=== PATIENT | male | born 1985 | race Two or more races ===

== ENCOUNTER 2024-10-05 20:02 | Inpatient (IN) | payer MEDICAID, OTHER ==
[~2024-10-05] VITALS: Ht 180.3 cm; Wt 118.8 kg
--- NOTE | 2024-10-05 20:30 | ED.PDOC ---
History of Present Illness HPI Comments A 39 year-old male, with a PMHX of DM, Lupus, Seizures, and Stroke, presents to the ED with a chief complaint of confusion as of today. Patient is accompanied by his younger brother, who states patient is not acting like his regular self, displaying an inability to remember what day/month it is or remember simple tasks like making food. Per brother, this behavior is irregular, patient is flustered and confused. Patient is A&OX4 but has his brother answer all questions. Patient has no further complaints at this time and otherwise denies further associated symptoms of LOC, migraine, dizziness, chest pain, N/V/D, fever, or chills. Chief Complaint: ALOC Time Seen by MD: 20:23 Reviewed Notes: Nurses Notes, Medications, Allergies Allergies: Coded Allergies: NO KNOWN ALLERGIES (Unverified , 10/05/24) Information Source: Patient, Relative (Brother ) Mode of Arrival: Ambulatory Severity: Moderate Duration: Since onset Associated signs and symptoms Confusion / Inability to Remember Past Medical History PAST MEDICAL HISTORY: DM, HTN, Seizures Past Medical History (Other): Lupus, Blood Clots, Stroke Surgical History: Denies all surgeries Family History Family History: Reviewed,noncontributory to illness, No family hx of Cancer, No family hx of DM, No family hx of Heart casa, No family hx of HTN, No family hx ofKidney casa, No family hx of Liver casa, No family hx of Lung casa, No family hx of Stroke Social History Smoker: Non-Smoker Alcohol: Denies ETOH Use Drugs: Denies Drug Use Lives In: Home Constitutional: reports: others (Confusion / Inability to Remember); denies: chills, diaphoresis, fatigue, fever, malaise, sweats, weakness EENTM: denies: blurred vision, double vision, ear bleeding, ear discharge, ear drainage, ear pain, ear ringing, eye pain, eye redness, hearing loss, mouth pain, mouth swelling, nasal discharge, nose bleeding, nose congestion, nose pain, photophobia, tearing, throat pain, throat swelling, voice changes, others Respiratory: denies: cough, hemoptysis, orthopnea, SOB at rest, shortness of breath, SOB with excertion, stridor, wheezing, others Cardiovascular: denies: chest pain, dizzy spells, diaphoresis, Dyspnea on exertion, edema, irregular heart beat, left arm pain, lightheadedness, palpitations, PND, syncope, others Gastrointestinal: denies: abdomen distended, abdominal pain, blood streaked bowels, constipated, diarrhea, dysphagia, difficulty swallowing, hematemesis, melena, nausea, poor appetite, poor fluid intake, rectal bleeding, rectal pain, vomiting, others Genitourinary: denies: burning, dysuria, flank pain, frequency, hematuria, incontinence, penile discharge, penile sore, pain, testicle pain, testicle swelling, urgency, others Neurological: denies: dizziness, fainting, headache, left sided numbness, left sided weakness, numbness, paresthesia, pre-existing deficit, right sided numbness, right sided weakness, seizure, speech problems, tingling, tremors, weakness, others Musculoskeletal: denies: back pain, gout, joint pain, joint swelling, muscle pain, muscle stiffness, neck pain, others Integumetry: denies: bruises, change in color, change in hair/nails, dryness, laceration, lesions, lumps, rash, wounds, others Allergic/Immunocompromised: denies: Difficulty Healing, Frequent Infections, Hives, Itching, others Hematologic/Lymphatic: denies: anemia, blood clots, easy bleeding, easy bruising, swollen glands, others Endocrine: denies: excessive hunger, excessive sweating, excessive thirst, excessive urination, flushing, intolerance to cold, intolerance to heat, unexplained weight gain, unexplained weight loss, others Psychiatric: denies: anxiety, bipolar disorder, depression, hopeless, panic disorder, schizophrenia, sleepless, suicidal, others All Other Systems: Reviewed and Negative Physical Exam General Appearance: Mild Distress, Normal HEENT: Normal ENT Inspection, Pharynx Normal, TMs Normal Neck: Full Range of Motion, Non-Tender, Normal, Normal Inspection Respiratory: Chest Non-Tender, Lungs Clear, No Accessory Muscle Use, No Respiratory Distress, Normal Breath Sounds Cardiovascular: No Edema, No JVD, No Murmur, No Gallop, Normal Peripheral Pulses, Regular Rate/Rhythm Breast Exam: Deferred Gastrointestinal: No Organomegaly, Non Tender, No Pulsatile Mass, Normal Bowel Sounds, Soft Genitalia: Deferred Pelvic: Deferred Rectal: Deferred Extremities: No calf tenderness, Normal capillary refill, Normal inspection, Normal range of motion, Non-tender, No pedal edema Musculoskeletal : Apperance: Normal Neurologic: Alert, research scholar II-XII nml as Tested, No Motor Deficits, Normal Affect, Normal Mood, No Sensory Deficits Cerebellar Function: Normal Reflexes: Normal Skin: Dry, Normal Color, Warm Lymphatic: No Adenopathy Was a procedure done? Was a procedure done?: No Differential Dx Considerations may include: Dementia, HTN, DM X-Ray, Labs, Meds, VS Vital Signs Date Time Temp Pulse Resp B/P (MAP) Pulse Ox O2 Delivery O2 Flow Rate FiO2 10/05/24 23:07 98.3 81 14 149/97 (114) 94 98.3 10/05/24 20:02 98.7 99 20 138/88 98 98.7 Lab Test 10/05/24 23:30 10/05/24 21:00 Range/Units Urine Color Light-yellow Yellow Urine Clarity Clear Clear Urine pH 5.0 5.0-9.0 Urine Specific [place] 1.020 1.001-1.035 Urine Protein Trace H Negative Urine Ketones Negative Negative Urine Blood Negative Negative /uL Urine Nitrite Negative Negative Urine Bilirubin Negative Negative Urine Urobilinogen Normal Negative mg/dL Urine Leukocyte Esterase Negative Negative /uL Urine RBC None seen 0 - 3 /hpf Urine Microscopic WBC < 1 0-3 /HPF Urine Squamous Epithelial Cells None seen <5 /hpf Urine Uric Acid Crystals Few None Seen /hpf Urine Bacteria None seen None Seen /hpf Urine Mucus Few None Seen Urine Glucose 4+ H Normal mg/dL Urine Opiates Screen Neg NEGATIVE Urine Fentanyl Screen Neg NEGATIVE Urine Barbiturates Screen Neg NEGATIVE Urine Phencyclidine Screen Neg NEGATIVE Urine Amphetamines Screen Neg NEGATIVE Urine Benzodiazepines Screen Neg NEGATIVE Urine Cocaine Screen Neg NEGATIVE Urine Cannabinoids Screen Pos NEGATIVE White Blood Count 9.8 4.4-10.8 10^3/uL Red Blood Count 5.80 4.5-5.90 10^6/uL Hemoglobin 16.8 13.5-17.5 g/dL Hematocrit 47.7 41.0-53.0 % Mean Corpuscular Volume 82.2 80.0-100.0 fL Mean Corpuscular Hemoglobin 29.0 28.0-32.0 pg Mean Corpuscular Hemoglobin Concent 35.2 32.0-36.0 g/dL Red Cell Distribution Width 14.6 H 11.8-14.3 % Platelet Count 89 L 140-450 10^3/uL Mean Platelet Volume 8.5 6.9-10.8 fL Neutrophils (%) (Auto) 80.1 H 37.0-80.0 % Lymphocytes (%) (Auto) 10.2 10.0-50.0 % Monocytes (%) (Auto) 6.2 0.0-12.0 % Eosinophils (%) (Auto) 2.8 0.0-7.0 % Basophils (%) (Auto) 0.7 0.0-2.0 % Neutrophils # (Auto) 7.9 1.6-8.6 10 ^3/uL Lymphocytes # (Auto) 1.0 0.4-5.4 10 ^3/uL Monocytes # (Auto) 0.6 0-1.3 10 ^3/uL Eosinophils # (Auto) 0.3 0-0.8 10 ^3/uL Basophils # (Auto) 0.1 0-0.2 10 ^3/uL Nucleated Red Blood Cells 0.2 % Platelet Estimate Decreased Sodium Level 140 136-145 mmol/L Potassium Level 4.1 3.5-5.1 mmol/L Chloride Level 105 98-107 mmol/L Carbon Dioxide Level 24 20-31 mmol/L Anion Gap 11 5-15 Blood Urea Nitrogen 20 9-23 mg/dL Creatinine 2.10 H 0.700-1.30 mg/dL Glomerular Filtration Rate Calc 40 >90 mL/min BUN/Creatinine Ratio 9.5 L 10.0-20.0 Serum Glucose 127 H 74-106 mg/dL Calcium Level 10.2 8.7-10.4 mg/dL Total Bilirubin 0.8 0.2-1.0 mg/dL Aspartate Amino Transferase (AST) 31 13-40 U/L Alanine Aminotransferase (ALT) 34 7-40 U/L Alkaline Phosphatase 149 H 46-116 U/L Ammonia 14 11-32 umol/L Total Protein 7.7 5.7-8.2 g/dL Albumin 4.7 3.2-4.8 g/dL Plasma/Serum Blood Alcohol 4.1 <10 mg/dL X-Ray, Labs, Meds, VS Comment Patient will be admitted for metabolic encephalopathy Recommend neuro consult in the morning Vital signs reviewed, patient is hemodynamically stable Past history reviewed Time of 1ST Reevaluation: 20:43 Reevaluation 1ST: Unchanged Patient Education/Counseling: Diagnosis, Treatment Family Education/Counseling: Diagnosis, Treatment SEPSIS Sepsis Screen Date sepsis recognized/suspect: Oct 05, 2024 Time Sepsis recognized/suspect: 2001 Procedure: No On Antibiotic Therapy: No Respiratory Rate >20: No Heart Rate >90: No Temp<36 C (96.8 F) or >38.3 C: No SBP <90 or MAP <65 mmHG: No New Acute Mental Status Change: No Is the patient on CPAP, BIPAP,: No Physician Orders Head Without Contrast (10/05/24 20:29) Vital Signs Date Time Temp Pulse Resp B/P (MAP) Pulse Ox O2 Delivery O2 Flow Rate FiO2 10/05/24 23:07 98.3 81 14 149/97 (114) 94 98.3 10/05/24 20:02 98.7 99 20 138/88 98 98.7 Laboratory Tests Test 10/05/24 21:00 White Blood Count 9.8 10^3/uL (4.4-10.8) Departure 1 Departure Time of Disposition: 00:15 Impression: Primary Impression: Altered mental status Qualified Codes: R41.0 - Disorientation, unspecified Additional Impression: Metabolic encephalopathy Disposition: ADMITTED INPATIENT Condition: Fair Discharged With: Self Critical Care Note Critical Care Time?: No Stability Stability form required: No Heart Score Heart Score: Heart Score Response (Comments) Value History N/A 0 EKG N/A 0 Age N/A 0 Risk Factors N/A 0 Troponin N/A 0 Total 0 I personally scribed for AKASH JOHNSON THIRD GRADE TEACHER ([email or web address]) on 10/05/24 at 20:30. Electronically submitted by Vidya Rolon ([employer]). I personally scribed for AKASH JOHNSON THIRD GRADE TEACHER ([email or web address]) on 10/05/24 at 20:42. Electronically submitted by Vidya Rolon ([employer]). AKASH JOHNSON THIRD GRADE TEACHER Oct 05, 2024 20:30
[2024-10-05 21:30] LABS: Hematocrit 47.7 % (41.0-53.0); Hemoglobin 16.8 g/dL (13.5-17.5); Mean Corpuscular Hemoglobin 29.0 pg (28.0-32.0); Mean Corpuscular Volume 82.2 fL (80.0-100.0); Nucleated Red Blood Cells % 0.2 %
--- NOTE | 2024-10-05 21:34 | DVH ---
CLINICAL HISTORY: aloc TECHNIQUE: Helical imaging carried out from skull base to vertex without intravenous contrast. This e xam was performed according to our departmental dose optimization program. Up-to-date CT equipment an d radiation dose reduction techniques are utilized as appropriate. CTDIVol: 64.62 mGy DLP: 1271.79 mGy-cm WID: COMPARISON: None FINDINGS: The ventricles and subarachnoid spaces are normal in size and configuration. There is no midline laila ft or mass effect. The ladd white matter interfaces are maintained. The basal cisterns are patent. Th ere is no evidence of acute intracranial hemorrhage or extra-axial fluid collection. The mastoid air cells and visualized paranasal sinuses are well-aerated. IMPRESSION: No acute intracranial abnormality.
[2024-10-05 21:37] LABS: Alanine Aminotransferase 34 U/L (7-40); Albumin 4.7 g/dL (3.2-4.8); Calcium 10.2 mg/dL (8.7-10.4); Carbon Dioxide 24 mmol/L (20-31); Chloride 105 mmol/L (98-107)
[2024-10-05 21:38] LABS: Anion Gap 11 (5-15); BUN/Creatinine Ratio 9.5 (10.0-20.0); Bilirubin, Total 0.8 mg/dL (0.2-1.0); Blood Urea Nitrogen 20 mg/dL (9-23); Potassium 4.1 mmol/L (3.5-5.1); Sodium 140 mmol/L (136-145); Total Protein 7.7 g/dL (5.7-8.2)
[2024-10-05 21:54] LABS: Alkaline Phosphatase 149 U/L (46-116); Glucose 127 mg/dL (74-106)
[2024-10-05 23:46] LABS: Urine Protein, UAD TRACE (Negative)
[2024-10-05 23:56] LABS: Cannabinoid Screen, Urine Pos (NEGATIVE)
[2024-10-06 00:04] LABS: Amphetamine Screen, Urine Neg (NEGATIVE); Barbiturate Scree,Urine Neg (NEGATIVE); Benzodiazephine Screen, Urine Neg (NEGATIVE); Cocaine Screen, Urine Neg (NEGATIVE); Opiate Scree,Urine Neg (NEGATIVE); Phencyclidine Screen, Urine Neg (NEGATIVE)
[2024-10-06] MEDS: SODIUM CHLORIDE 0.9% 2,250 ML IV ONE (01:45)
--- NOTE | 2024-10-06 01:54 | DVHHPRES ---
History of Present Illness Resident Creating Document: DARLING ANGELA RESIDENT History of Present Illness Tommy Aviles 39 year-old male, with a past medical history of Lupus, Seizures, DM, and Stroke (6 mo ago). The patient presented to the ED with a complaint of 1 day of confusion associated with short term memory loss. The patient is accompanied by family member who report changes from his normal baseline cognitive status. Per brother, this behavior is irregular, patient looks anxious and confused, unable to recall recent events and repeating same story "Like he is in a loop". The patient denies head trauma, seizure episode (last seizure is "years ago"), headache, medication non compliance, fever, chills, nausea, changes on vision or other symptoms. In the ED the patient continues confused. 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 ) Smoke: No Drugs: Marijuana Lives: with Family Review of Systems Constitutional: No: Fever, Chills, Sweats, Weakness, Malaise, Other Eyes: No: Pain, Vision change, Conjunctivae inflammation, Eyelid inflammation, Other, Redness ENT: No: Ear pain, Ear discharge, Nose pain, Nose discharge, Nose congestion, Mouth pain, Mouth swelling, Throat pain, Throat swelling, Other Respiratory: No: Cough, Dry, Shortness of breath, SOB with excertion, Wheezing, Hemoptysis, Pleuritic Pain, Sputum, Wheezing, Other Cardiovascular: No: Chest Pain, Palpitations, Orthopnea, Paroxysmal Noc. Dyspnea, Edema, Lt Headedness, Other Gastrointestinal: No: Nausea, Vomiting, Abdominal Pain, Diarrhea, Constipation, Melena, Hematochezia, Other Genitourinary: No Dysuria, No Frequency, No Incontinence, No Hematuria, No Retention, No Other Musculoskeletal: No: other, neck pain, shoulder pain, arm pain, back pain, hand pain, leg pain, foot pain Skin: No: Rash, Lesions, Jaundice, Bruising, Other Neurological: Confusion, Other (Confusion, short memory loss. ); No: Weakness, Numbness, Incoordination, Change in speech, Seizures Allergies: Coded Allergies: NO KNOWN ALLERGIES (Unverified , 10/05/24) Exam Vital Signs Vital Signs Date Time Temp Pulse Resp B/P (MAP) Pulse Ox O2 Delivery O2 Flow Rate FiO2 10/05/24 23:07 98.3 81 14 149/97 (996) 94 98.3 General Appearance: Alert, Oriented X3, Cooperative HEENT: Atraumatic, PERRLA, Mucous membr. moist/pink Respiratory: Clear to auscultation, Normal air movement Cardiovascular: Regular rate, Normal S1, Normal S2, No murmurs Abdominal: Normal bowel sounds, Soft, No tenderness, No hepatospenomegaly, No masses Extremities: No clubbing, No cyanosis, No edema, Normal pulses, No tenderness/swelling Skin: No rashes, No breakdown, No significant lesion Neuro: Normal gait, Normal speech, Strength at 5/5 X4 ext, Normal tone, Sensation intact, Cranial nerves 3-12 NL, Reflexes 2+ Psych/Mental Status: Other (Patient looks anxious, confused, short term memory loss. Ox2 person and place, not in time.) Labs/Xrays Labs Test 10/05/24 23:30 10/05/24 21:00 Range/Units Urine Color Light-yellow Yellow Urine Clarity Clear Clear Urine pH 5.0 5.0-9.0 Urine Specific [place] 1.020 1.001-1.035 Urine Protein Trace H Negative Urine Ketones Negative Negative Urine Blood Negative Negative /uL Urine Nitrite Negative Negative Urine Bilirubin Negative Negative Urine Urobilinogen Normal Negative mg/dL Urine Leukocyte Esterase Negative Negative /uL Urine RBC None seen 0 - 3 /hpf Urine Microscopic WBC < 1 0-3 /HPF Urine Squamous Epithelial Cells None seen <5 /hpf Urine Uric Acid Crystals Few None Seen /hpf Urine Bacteria None seen None Seen /hpf Urine Mucus Few None Seen Urine Glucose 4+ H Normal mg/dL Urine Opiates Screen Neg NEGATIVE Urine Fentanyl Screen Neg NEGATIVE Urine Barbiturates Screen Neg NEGATIVE Urine Phencyclidine Screen Neg NEGATIVE Urine Amphetamines Screen Neg NEGATIVE Urine Benzodiazepines Screen Neg NEGATIVE Urine Cocaine Screen Neg NEGATIVE Urine Cannabinoids Screen Pos NEGATIVE White Blood Count 9.8 4.4-10.8 10^3/uL Red Blood Count 5.80 4.5-5.90 10^6/uL Hemoglobin 16.8 13.5-17.5 g/dL Hematocrit 47.7 41.0-53.0 % Mean Corpuscular Volume 82.2 80.0-100.0 fL Mean Corpuscular Hemoglobin 29.0 28.0-32.0 pg Mean Corpuscular Hemoglobin Concent 35.2 32.0-36.0 g/dL Red Cell Distribution Width 14.6 H 11.8-14.3 % Platelet Count 89 L 140-450 10^3/uL Mean Platelet Volume 8.5 6.9-10.8 fL Neutrophils (%) (Auto) 80.1 H 37.0-80.0 % Lymphocytes (%) (Auto) 10.2 10.0-50.0 % Monocytes (%) (Auto) 6.2 0.0-12.0 % Eosinophils (%) (Auto) 2.8 0.0-7.0 % Basophils (%) (Auto) 0.7 0.0-2.0 % Neutrophils # (Auto) 7.9 1.6-8.6 10 ^3/uL Lymphocytes # (Auto) 1.0 0.4-5.4 10 ^3/uL Monocytes # (Auto) 0.6 0-1.3 10 ^3/uL Eosinophils # (Auto) 0.3 0-0.8 10 ^3/uL Basophils # (Auto) 0.1 0-0.2 10 ^3/uL Nucleated Red Blood Cells 0.2 % Platelet Estimate Decreased Sodium Level 140 136-145 mmol/L Potassium Level 4.1 3.5-5.1 mmol/L Chloride Level 105 98-107 mmol/L Carbon Dioxide Level 24 20-31 mmol/L Anion Gap 11 5-15 Blood Urea Nitrogen 20 9-23 mg/dL Creatinine 2.10 H 0.700-1.30 mg/dL Glomerular Filtration Rate Calc 40 >90 mL/min BUN/Creatinine Ratio 9.5 L 10.0-20.0 Serum Glucose 127 H 74-106 mg/dL Calcium Level 10.2 8.7-10.4 mg/dL Total Bilirubin 0.8 0.2-1.0 mg/dL Aspartate Amino Transferase (AST) 31 13-40 U/L Alanine Aminotransferase (ALT) 34 7-40 U/L Alkaline Phosphatase 149 H 46-116 U/L Ammonia 14 11-32 umol/L Total Protein 7.7 5.7-8.2 g/dL Albumin 4.7 3.2-4.8 g/dL Plasma/Serum Blood Alcohol 4.1 <10 mg/dL SEPSIS Sepsis Screen Date sepsis recognized/suspect: Oct 05, 2024 Time Sepsis recognized/suspect: 2001 Recent Procedure: No On Antibiotic Therapy: No Respiratory Rate >20: No Heart Rate >90: No Temp<36 C (96.8 F) or >38.3 C: No SBP <90 or MAP <65 mmHG: No New Acute Mental Status Change: No Is the patient on CPAP, BIPAP,: No Physician Orders Head Without Contrast (10/05/24 20:29) Admit (10/06/24 01:32) Code Status (10/06/24 01:32) Vital Signs .PER UNIT PROTOCOL (10/06/24 01:32) Review Orders With Adm.Md (10/06/24 01:32) Bedrest With Bathroom Privileg (10/06/24 01:32) [facility]Diabetes (10/06/24 Breakfast) Notify Md Of Changes From Base (10/06/24 01:32) Advance Directive (10/06/24 01:32) Patient Condition (10/06/24 01:32) Allergies (10/06/24 01:32) * Neurology Consult (10/06/24 01:32) * Rheumatology Consult (10/06/24 ) Sodium Chloride 0.9% (10/06/24 01:45) Complete Blood Count (10/06/24 04:00) Comprehensive Metabolic Panel (10/06/24 04:00) Pantoprazole Tablet (Protonix Tablet) (10/06/24 02:00) Chest Xray 1 View (10/06/24 01:53) Vital Signs Date Time Temp Pulse Resp B/P (MAP) Pulse Ox O2 Delivery O2 Flow Rate FiO2 10/05/24 23:07 98.3 81 14 149/97 (114) 94 98.3 10/05/24 20:02 98.7 99 20 138/88 98 98.7 Laboratory Tests Test 10/05/24 21:00 White Blood Count 9.8 10^3/uL (4.4-10.8) Assessment/Plan Assessment/Plan #R/O CVA #Seizure disorder #Hx of Stroke Head CT non contrast Neurology consult #Possible Metabolic encephalopathy Ammonia level #Possible Neurophychiatric LES #LES Rheumatology consult #DM type 2 # Dehydration IV fluids #CKD Stage stage 3b #Obesity Counseling of life style changes Low carbohydrate diet DVT prophylaxis- patient deambulates PUD prophylaxis Protonic Goals of care discussed with the patient > 35 min. Discussed plan of care with Dr. Johnson Code status: Full code PCP: Does not recall name Plan discussed with: Patient and brother, the patient agrees with the plan. Plan discussed with: Patient, Other (Brother) My Orders Orders - DARLING ANGELA Procedure Category Date Status Time Admit ADMIT 10/06/24 Transmitted 01:32 Code Status CODE 10/06/24 Transmitted 01:32 Vital Signs [place] 10/06/24 In Process 01:32 Review Orders With [facility] 10/06/24 In Process Adm.Md 01:32 Bedrest With Bathroom [place] 10/06/24 In Process Privileg 01:32 Consistent DIET 10/06/24 Transmitted Carb([facility])Diabetes Breakfast Notify Md Of Changes [place] 10/06/24 In Process From Base 01:32 Advance Directive [place] 10/06/24 In Process 01:32 Patient Condition ORDERS 10/06/24 Transmitted 01:32 Allergies [place] 10/06/24 In Process 01:32 * Neurology Consult CONS 10/06/24 Transmitted 01:32 * Rheumatology Consult CONS 10/06/24 Transmitted Sodium Chloride 0.9% PHA 10/06/24 Logged 01:45 Complete Blood Count LAB 10/06/24 Logged 04:00 Comprehensive LAB 10/06/24 Logged Metabolic Panel 04:00 Pantoprazole Tablet PHA 10/06/24 Logged (Protonix Tablet) 02:00 Chest Xray 1 View XY 10/06/24 Verified 01:53 Common Visit Codes: 69611-ASNVIQQ INP/OBS CARE (HIGH) Secondary Visit Codes: 95209-TWOBFBLO CARE PLAN 30 MINUTES DARLING ANGELA RESIDENT Oct 06, 2024 01:54
[2024-10-06] MEDS: PANTOPRAZOLE 40 MG TAB PO ONE (04:37)
[2024-10-06 04:42] VITALS: O2SAT 100
--- NOTE | 2024-10-06 05:05 | DVH ---
CHEST RADIOGRAPH Indication: Cardiac evaluation Technique: Single frontal view of the chest was obtained Comparison: None FINDINGS: Lines and Tubes: None Lungs: No focal consolidation. Pleura: No effusion. No pneumothorax. Cardiomediastinal contours: Unremarkable Bones: Age-indeterminate left 2nd, 3rd and 4th rib fractures. IMPRESSION: 1. No acute cardiopulmonary disease. 2. Age-indeterminate left 2nd, 3rd and 4th rib fractures.
[2024-10-06 09:30] VITALS: PULSE 88; RESP 22; O2SAT 97
--- NOTE | 2024-10-06 09:34 | DVHINCON2 ---
Date of service: Oct 07, [address] Shirley Reason for Consultation Altered mental status, patient is with history of stroke six months ago, history of LES History of Present Illness Mr. Mckeon is a 39 years old right-handed gentleman with a history of hypertension, diabetes, lupus, stroke, his family brought him to the [facility] on 09/26/2024 with a chief complaint of altered mental status. At this time, he is alert and fully oriented, he provided the following history He relates his family noticed and he confirmed altered mental status, confusion, unable to responds his surrounding or questions properly, for about 30 minutes, but meanwhile he has some eyelids memory. He has never had similar problem before, denies a history of seizure On 07/13/2023, he developed dizziness/drifting to one side when he walks, the patient was admitted to the [facility] in [place], and he was found to have stroke and he went through thrombectomy, with good recovery. He was said to have stroke secondary to lupus He was found to have lupus and he was on warfarin and then Eliquis, however he discontinue his treatment two months prior to the stroke on 07/13/2023, but the patient has been treated with good compliance since He does not drive Urinalysis, 10/05/2024: No UTI UDS, 10/05/2024: Cannabinoids Plasma alcohol, 10/05/2024: 4.1 WBC/HB/PLT/MCV, 10/05/2024: 9.8/16.8/89/82.2 BUN/CR, 10/05/2024: 20/2.1 GFR, 10/05/2024: 40 Liver function tests, 09/26/2024: Unremarkable Ammonia, 10/05/2024: 14 CT head, 10/05/2024, No acute intracranial abnormality. MR head, 10/06/2024: No evidence of acute infarction, intracranial hemorrhage, mass effect or hydrocephalus. Questionable signal abnormality in the anterior medulla oblongata is nonspecific. Clinical correlation and continued follow-up is recommended. Consider follow-up exam with intravenous contrast. Past Medical History Hypertension, diabetes, lupus, stroke, Past Surgical History Heart surgery in his infancy Family History Stroke, no DVT Social History He was a tobacco smoker, he uses marijuana sometimes, but no history of drug or alcohol abuse Allergies: Coded Allergies: NO KNOWN ALLERGIES (Unverified , 10/05/24) Home Meds Reported Medications Furosemide (Lasix) 20 Mg Tb, 1 TAB PO DAILY, #90 TAB 1 Refill 10/06/24 Sacubitril-Valsartan (Entresto 24-26 mg) 1 Tab Tab, 1 TAB PO BID, TAB 10/06/24 Ertugliflozin l-Pyroglutamic A (Steglatro) 5 Mg Tab, 5 MG PO DAILY, TAB 10/06/24 Apixaban Base (ELIQUIS) 5 Mg Tab, 5 MG PO BID, TAB 10/06/24 Atorvastatin Calcium (Lipitor) 40 Mg Tab, 40 MG PO HS, TAB 10/06/24 Mycophenolate Mofetil (Cellcept) 500 Mg Tab, 500 MG PO BID, TAB 10/06/24 Hydroxychloroquine Sulfate (Hydroxychloroquine Sulfat) 200 Mg Tab, 200 MG PO BID, TAB 10/06/24 Carvedilol (Carvedilol) 6.25 Mg Tab, 6.25 MG PO BID, TAB 10/06/24 Potassium Chloride (POTASSIUM CHLORIDE CR) 10 Meq Tb, 10 MEQ PO DAILY, TAB 10/06/24 Review of Systems As above, the other systems are negative Vital Signs Vital Signs Date Time Temp Pulse Resp B/P (MAP) Pulse Ox O2 Delivery O2 Flow Rate FiO2 10/06/24 04:42 100 Room Air* 0 21 10/06/24 04:05 98.0 68 15 115/82 (93) 98.0 Physical Exam GENERAL EXAM: General: the patient is well developed and nourished. No acute distress. HEENT: Normocephalic, neck is supple, no carotid bruits. No mass. RESPIRATORY: Normal respiratory effort with symmetrical lung expansion. Lungs clear to auscultation. CARDIOVASCULAR: Regular rate and rhythm with no murmurs. S1, S2. ABDOMEN: Soft, nontender, normal bowel sound NEUROLOGICAL: MENTAL STATUS: Awake and alert. Oriented to person, place, time and general circumstances. Able to give personal history. SPEECH, LANGUAGE, HIGHER CORTICAL FUNCTION: no aphasia or dysathria. CRANIAL NERVES: #2: Intact visual crowder to confrontation. The optic discs were sharp. #3,4,6: Pupils are equal, round and reactive. EOMs full and conjugate. No nystagmus. #5: Facial sensation intact in all three divisions bilaterally. Mandibular strength intact. #7: Facial muscles symmetrical and strength intact. #8: Hearing grossly normal to voice. #9,10: Uvula and soft palate rise in the midline. Swallow and voice are normal. #11: Trapezius and sternomastoid strength intact bilaterally. #12: Tongue midline. No fasciculations or atrophy. SENSATION: Sensation to touch and pinprick is normal. MOTOR: Normal tone in the upper and lower extremity. Normal muscle bulk. No fasciculations. No abnormal movements or posturing. Muscle strength of the major groups in the upper extremities is 5/5. Muscle strength of the major groups in the lower extremities is 5/5. REFLEXES: Deep tendon reflexes are symmetrical. No pathological reflexes. CEREBELLAR/COORDINATION: Finger to nose and heel to davila are normal bilaterally. GAIT/STATION: deferred. Labs/Diagnostic Data Labs Test 10/05/24 23:30 10/05/24 21:00 Range/Units Urine Color Light-yellow Yellow Urine Clarity Clear Clear Urine pH 5.0 5.0-9.0 Urine Specific [place] 1.020 1.001-1.035 Urine Protein Trace H Negative Urine Ketones Negative Negative Urine Blood Negative Negative /uL Urine Nitrite Negative Negative Urine Bilirubin Negative Negative Urine Urobilinogen Normal Negative mg/dL Urine Leukocyte Esterase Negative Negative /uL Urine RBC None seen 0 - 3 /hpf Urine Microscopic WBC < 1 0-3 /HPF Urine Squamous Epithelial Cells None seen <5 /hpf Urine Uric Acid Crystals Few None Seen /hpf Urine Bacteria None seen None Seen /hpf Urine Mucus Few None Seen Urine Glucose 4+ H Normal mg/dL Urine Opiates Screen Neg NEGATIVE Urine Fentanyl Screen Neg NEGATIVE Urine Barbiturates Screen Neg NEGATIVE Urine Phencyclidine Screen Neg NEGATIVE Urine Amphetamines Screen Neg NEGATIVE Urine Benzodiazepines Screen Neg NEGATIVE Urine Cocaine Screen Neg NEGATIVE Urine Cannabinoids Screen Pos NEGATIVE White Blood Count 9.8 4.4-10.8 10^3/uL Red Blood Count 5.80 4.5-5.90 10^6/uL Hemoglobin 16.8 13.5-17.5 g/dL Hematocrit 47.7 41.0-53.0 % Mean Corpuscular Volume 82.2 80.0-100.0 fL Mean Corpuscular Hemoglobin 29.0 28.0-32.0 pg Mean Corpuscular Hemoglobin Concent 35.2 32.0-36.0 g/dL Red Cell Distribution Width 14.6 H 11.8-14.3 % Platelet Count 89 L 140-450 10^3/uL Mean Platelet Volume 8.5 6.9-10.8 fL Neutrophils (%) (Auto) 80.1 H 37.0-80.0 % Lymphocytes (%) (Auto) 10.2 10.0-50.0 % Monocytes (%) (Auto) 6.2 0.0-12.0 % Eosinophils (%) (Auto) 2.8 0.0-7.0 % Basophils (%) (Auto) 0.7 0.0-2.0 % Neutrophils # (Auto) 7.9 1.6-8.6 10 ^3/uL Lymphocytes # (Auto) 1.0 0.4-5.4 10 ^3/uL Monocytes # (Auto) 0.6 0-1.3 10 ^3/uL Eosinophils # (Auto) 0.3 0-0.8 10 ^3/uL Basophils # (Auto) 0.1 0-0.2 10 ^3/uL Nucleated Red Blood Cells 0.2 % Platelet Estimate Decreased Sodium Level 140 136-145 mmol/L Potassium Level 4.1 3.5-5.1 mmol/L Chloride Level 105 98-107 mmol/L Carbon Dioxide Level 24 20-31 mmol/L Anion Gap 11 5-15 Blood Urea Nitrogen 20 9-23 mg/dL Creatinine 2.10 H 0.700-1.30 mg/dL Glomerular Filtration Rate Calc 40 >90 mL/min BUN/Creatinine Ratio 9.5 L 10.0-20.0 Serum Glucose 127 H 74-106 mg/dL Calcium Level 10.2 8.7-10.4 mg/dL Total Bilirubin 0.8 0.2-1.0 mg/dL Aspartate Amino Transferase (AST) 31 13-40 U/L Alanine Aminotransferase (ALT) 34 7-40 U/L Alkaline Phosphatase 149 H 46-116 U/L Ammonia 14 11-32 umol/L Total Protein 7.7 5.7-8.2 g/dL Albumin 4.7 3.2-4.8 g/dL Plasma/Serum Blood Alcohol 4.1 <10 mg/dL Assessment Single spell of altered mental status with unremarkable MR brain ? Partial complex seizure ? Transient global amnesia Plan/Recommendation Monitoring Supportive treatment Telemetry EEG, okay as outpatient Eliquis 5 mg b.i.d. Thiamine, folic acid supplementation More recommendation per clinical course This medical document was created using an electronic medical record system with [employer] dictation system. Although this document has been carefully reviewed, there may still be some phonetic and typographical errors. These areas are purely typographical due to imperfections of the software programs, and do not reflect any compromise in the patient's medical care. Plan discussed with: Patient, Other ARNOL HICKS MD Oct 06, 2024 09:34
--- NOTE | 2024-10-06 13:38 | DVH ---
PROCEDURE: MRI BRAIN HEAD WO CONTRAST INDICATION: r/o ischemic stroke or structural disease EXAM DATE: 10/06/2024 12:55 PM COMPARISON: CT HEAD WITHOUT CONTRAST on DOS: 10/05/24 TECHNIQUE: MRI of the brain without intravenous contrast. FINDINGS: Diffusion weighted images of the brain demonstrate no evidence of acute infarction. There is no evidence of acute intracranial hemorrhage, extra-axial collection, mass effect, midline s hift, herniation or hydrocephalus. The ventricles, sulci and cisterns appear age appropriate. Questionable abnormal signal in the anterior medulla oblongata bilaterally. There are no signal abnormalities on the susceptibility weighted sequences. The major vascular flow voids are present. The visualized paranasal sinuses and mastoid air cells are clear. The surrounding soft tissues and o sseous structures are unremarkable. IMPRESSION: 1. No evidence of acute infarction, intracranial hemorrhage, mass effect or hydrocephalus. Questionab le signal abnormality in the anterior medulla oblongata is nonspecific. Clinical correlation and con tinued follow-up is recommended. Consider follow-up exam with intravenous contrast. HS:Y
[2024-10-06] MEDS ORDERED: ACETAMINOPHEN 325 MG TAB PO PRN (14:15)
--- NOTE | 2024-10-06 14:22 | DVHPNRES ---
Progress Note Date Seen: Oct 06, 2024 Resident Creating Document: RUTHIE KHALIL RESIDENT Medical Necessity Reason Pt with a Central, PICC or Fol: No Subjective Review of Systems Tommy Mckeon 39 year-old male, with a past medical history of Lupus, Seizures, DM, Stroke (), DVT, CHF, ED, presented to the ER with a complaint of confusion associated with gaps in memory. He reports his brother brought him here for talking gibberish. He does not recall the incident. As per the note in ER, 'The patient was accompanied by family member who report changes from his normal baseline cognitive status. Per brother, this behavior is irregular, patient looks anxious and confused, unable to recall recent events and repeating same story- Like he is in a loop". The patient denies head trauma, seizure episode, headache, new medication, fever, chills, nausea, changes on vision. His initial labs showed thrombocytopenia, elevated creatinine, ALP. Toxicology screen is positive for cannabinoids. Chest x-ray revealed left 2nd, 3rd, 4th rib fracture, head CT revealed no acute abnormality. Previous hospitalization: For stroke management in [facility] PMHx: Lupus, Seizures, DM, Stroke (), DVT, CHF, ED PSHx: Interventricular septal repair as Social history: Lives in [place], visiting parents who live with brother. Quit smoking 6-7 years ago, occasional alcohol use (4 per week) marijuana, last used 2 days ago Home medication: Mycophenolate, hydrochloroquine, furosemide, atorvastatin, Entresto, carvedilol, Eliquis, potassium, Stegletro, tadalafil, Ozempic ROS: Constitutional: Denies weight loss, fever and chills. HEENT: Denies changes in vision and hearing. Respiratory: Denies shortness of breath and cough Cardiovascular: Denies chest discomfort or palpitations GI: Denies abdominal pain, nausea, vomiting and diarrhea. : Denies dysuria and urinary frequency. Musculoskeletal: Denies myalgias and joint pain Skin: Denies rash and pruritus. Neurological: Confusion, amnesia His examined today. Continues to complain of confusion and amnesia. An MRI done showed: no evidence of acute infarction, intracranial hemorrhage, mass effect or hydrocephalus. Questionable signal abnormality in the anterior medulla oblongata is nonspecific. Clinical correlation, follow-up recommended with intravenous contrast. Objective vital signs Vital Sign Date Time Temp Pulse Resp B/P (MAP) Pulse Ox O2 Delivery O2 Flow Rate FiO2 10/06/24 09:30 88 22 97 Room Air* 0 21 10/06/24 09:30 97.7 188/105 (132) 97.7 Total Intake and Output 10/05/24 10/05/24 10/06/24 15:00 23:00 07:00 Intake Total 2250 ml Balance 2250 ml Examination General: Patient alert and oriented in person, place and time. Patient following commands. HEENT: Normocephalic, atraumatic, moist mucous membranes Respiratory/pulmonary: Clear lungs bilaterally, no associated crackles or wheezes. Cardiovascular: Normal heart sounds S1 and S2 with no associated murmurs Abdomen: Abdomen nondistended, there is no pain to palpation in any of the abdominal quadrants, no palpable masses. Extremities: There is no peripheral edema present at the lower extremities. Skin: No rashes or pruritus, there is no sacral edema present at this time. Neurological: Intact cranial nerves with no focal neurologic deficits laboratory and microbiology Laboratory Tests 10/05/24 21:00 Test 10/05/24 21:00 Range/Units Serum Glucose 127 H 74-106 mg/dL Problem List/Assessment/Plan Problem List/Assessment/Plan Acute toxic encephalopathy, likely due to alcohol use disorder Acute onset amnesia, due to below Ischemic stroke, ruled out Hemorrhagic stroke, ruled out Seizure disorder, possible * Head CT non contrast revealed no acute abnormality * MRI revealed no evidence of acute infarction, intracranial hemorrhage, mass effect or hydrocephalus. Questionable signal abnormality in the anterior medulla oblongata is nonspecific. Clinical correlation, follow-up recommended with intravenous contrast. 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 We will hold off due to thrombocytopenia GI PROPHYLAXIS: Protonix CODE STATUS: Goals of care discussed with patient at bedside for more than 25 minutes. Full code DISPOSITION: Outflow Patient's status and plan discussed with the patient. Case discussed with Dr. Oleary. Plan discussed with: Patient My Orders My Orders Orders - RUTHIE KHALIL RESIDENT Procedure Category Date Status Time Brain Head Wo Contrast MRI 10/06/24 Resulted 10:41 Erythrocyte LAB 10/06/24 In Process Sedimentation Rate 10:41 C-Reactive Protein LAB 10/06/24 In Process 10:41 Date of Service: Oct 06, 2024 Billing Provider: JENNYFER OLEARY MD Common Visit Codes: [id number] INP/OBS CARE(HIGH) RUTHIE KHALIL RESIDENT Oct 06, 2024 14:22 JENNYFER OLEARY MD Oct 07, 2024 14:05
[2024-10-06] MEDS: PANTOPRAZOLE 40 MG/10 ML VIAL INJ IV ONE (14:55)
[2024-10-06 14:56] LABS: INR 1.14 (0.9-1.15); Prothrombin Time 11.9 sec (9.3-11.8)
[2024-10-06 18:25] VITALS: BP 143/77; PULSE 67; RESP 18; TEMP 97.6; O2SAT 99
[2024-10-06] MEDS ORDERED: DEXTROSE (50%) 50ML SYRG IV PRN (19:00)
[2024-10-06 19:30] VITALS: BP 113/73; PULSE 74; TEMP 98.2; O2SAT 98
[2024-10-06 20:00] VITALS: PULSE 74; RESP 18; O2SAT 98
[2024-10-06 21:00] VITALS: BP 113/73; PULSE 74; RESP 22; TEMP 98.2; O2SAT 98
[2024-10-06] MEDS: ACCU-CHEK COMFORT CURVE STRIP VI SCH (22:00)
[2024-10-06] MEDS: InsuLIN REG 1unit/0.01ml Soln (100units/ml) SC SCH (22:00)
[2024-10-06] MEDS ORDERED: MYCO500T PO (23:13)
[2024-10-06] MEDS ORDERED: ERTU5TAB PO (23:13)
[2024-10-06] MEDS ORDERED: FURO1TAB33 PO (23:13)
[2024-10-06] MEDS ORDERED: SACU1TAB PO (23:13)
[2024-10-06] MEDS ORDERED: POTA-36 PO (23:13)
[2024-10-06] MEDS ORDERED: CARV6.2551 PO (23:13)
[2024-10-06] MEDS ORDERED: ATOR-507 PO (23:13)
[2024-10-06] MEDS ORDERED: APIX5TAB PO (23:13)
[2024-10-06] MEDS ORDERED: HYDR200T36 PO (23:13)
[2024-10-07 05:00] VITALS: BP 128/85; PULSE 75; RESP 20; TEMP 98.2; O2SAT 95
[2024-10-07 06:28] LABS: Hematocrit 43.3 % (41.0-53.0); Hemoglobin 14.8 g/dL (13.5-17.5); Mean Corpuscular Hemoglobin 28.0 pg (28.0-32.0); Mean Corpuscular Volume 82.3 fL (80.0-100.0); Nucleated Red Blood Cells % 0.1 %
[2024-10-07 06:38] LABS: Anion Gap 7 (5-15); Calcium 9.5 mg/dL (8.7-10.4); Carbon Dioxide 24 mmol/L (20-31); Potassium 3.7 mmol/L (3.5-5.1); Sodium 141 mmol/L (136-145)
[2024-10-07 06:40] LABS: Chloride 110 mmol/L (98-107)
[2024-10-07 06:44] LABS: BUN/Creatinine Ratio 12.3 (10.0-20.0); Blood Urea Nitrogen 17 mg/dL (9-23); Glucose 84 mg/dL (74-106)
--- NOTE | 2024-10-07 07:04 | DVHDSRES ---
Discharge Summary Date of Admission Resident Creating Document: RUTHIE KHALIL RESIDENT Oct 06, 2024 at 01:32 Admitting Diagnosis Acute toxic encephalopathy, likely due to alcohol use disorder Labs/Diagnostic Data: Laboratory Results Test 10/07/24 06:34 10/07/24 05:23 10/06/24 13:47 10/05/24 23:30 POC Glucose 91 mg/dl (70-106) White Blood Count 6.3 10^3/uL (4.4-10.8) Red Blood Count 5.27 10^6/uL (4.5-5.90) Hemoglobin 14.8 g/dL (13.5-17.5) Hematocrit 43.3 % (41.0-53.0) Mean Corpuscular Volume 82.3 fL (80.0-100.0) Mean Corpuscular Hemoglobin 28.0 pg (28.0-32.0) Mean Corpuscular Hemoglobin Concent 34.1 g/dL (32.0-36.0) Red Cell Distribution Width 13.9 % (11.8-14.3) Platelet Count 81 10^3/uL (140-450) Mean Platelet Volume 8.3 fL (6.9-10.8) Neutrophils (%) (Auto) 61.7 % (37.0-80.0) Lymphocytes (%) (Auto) 20.3 % (10.0-50.0) Monocytes (%) (Auto) 9.4 % (0.0-12.0) Eosinophils (%) (Auto) 7.4 % (0.0-7.0) Basophils (%) (Auto) 1.2 % (0.0-2.0) Neutrophils # (Auto) 3.9 10 ^3/uL (1.6-8.6) Lymphocytes # (Auto) 1.3 10 ^3/uL (0.4-5.4) Monocytes # (Auto) 0.6 10 ^3/uL (0-1.3) Eosinophils # (Auto) 0.5 10 ^3/uL (0-0.8) Basophils # (Auto) 0.1 10 ^3/uL (0-0.2) Nucleated Red Blood Cells 0.1 % Sodium Level 141 mmol/L (136-145) Potassium Level 3.7 mmol/L (3.5-5.1) Chloride Level 110 mmol/L (98-107) Carbon Dioxide Level 24 mmol/L (20-31) Anion Gap 7 (5-15) Blood Urea Nitrogen 17 mg/dL (9-23) Creatinine 1.38 mg/dL (0.700-1.30) Glomerular Filtration Rate Calc 66 mL/min (>90) BUN/Creatinine Ratio 12.3 (10.0-20.0) Serum Glucose 84 mg/dL (74-106) Calcium Level 9.5 mg/dL (8.7-10.4) Erythrocyte Sedimentation Rate 10 mm/hr (0-20) Prothrombin Time 11.9 sec (9.3-11.8) Prothrombin Time INR 1.14 (0.9-1.15) Hemoglobin A1c 6.2 % A1C (<5.7) C-Reactive Protein High Sensitivity 0.89 mg/dL (<1.0) B-Type Natriuretic Peptide 56.43 pg/mL (0-100) Urine Color Light-yellow (Yellow) Urine Clarity Clear (Clear) Urine pH 5.0 (5.0-9.0) Urine Specific Bradley 1.020 (1.001-1.035) Urine Protein Trace (Negative) Urine Ketones Negative (Negative) Urine Blood Negative /uL (Negative) Urine Nitrite Negative (Negative) Urine Bilirubin Negative (Negative) Urine Urobilinogen Normal mg/dL (Negative) Urine Leukocyte Esterase Negative /uL (Negative) Urine RBC None seen /hpf (0 - 3) Urine Microscopic WBC < 1 /HPF (0-3) Urine Squamous Epithelial Cells None seen /hpf (<5) Urine Uric Acid Crystals Few /hpf (None Seen) Urine Bacteria None seen /hpf (None Seen) Urine Mucus Few (None Seen) Urine Glucose 4+ mg/dL (Normal) Urine Opiates Screen Neg (NEGATIVE) Urine Fentanyl Screen Neg (NEGATIVE) Urine Barbiturates Screen Neg (NEGATIVE) Urine Phencyclidine Screen Neg (NEGATIVE) Urine Amphetamines Screen Neg (NEGATIVE) Urine Benzodiazepines Screen Neg (NEGATIVE) Urine Cocaine Screen Neg (NEGATIVE) Urine Cannabinoids Screen Pos (NEGATIVE) Test 10/05/24 21:00 Platelet Estimate Decreased Total Bilirubin 0.8 mg/dL (0.2-1.0) Aspartate Amino Transferase (AST) 31 U/L (13-40) Alanine Aminotransferase (ALT) 34 U/L (7-40) Alkaline Phosphatase 149 U/L (46-116) Ammonia 14 umol/L (11-32) Total Protein 7.7 g/dL (5.7-8.2) Albumin 4.7 g/dL (3.2-4.8) Plasma/Serum Blood Alcohol 4.1 mg/dL (<10) Other Laboratory Tests 10/07/24 05:23 Brief Hx & Hospital Course: Brief history: Tommy Mckeon 39 year-old male, with a past medical history of Lupus, Seizures, DM, Stroke (), DVT, CHF, ED, presented to the ER with a complaint of confusion associated with gaps in memory. He reported he could recall drinking beer with his brother. His brother brought him to the ER for talking gibberish. He was confused to do inability to recall the incident, and eating dinner with the family. As per the note in ER, 'The patient was accompanied by family member who report changes from his normal baseline cognitive status. Per brother, this behavior is irregular, patient looks anxious and confused, unable to recall recent events and repeating same story- Like he is in a loop". He denied head trauma, seizure episode, headache, new medication, fever, chills, nausea, changes on vision. Hospital course: His initial labs showed thrombocytopenia, elevated creatinine, ALP. Toxicology screen is positive for cannabinoids. Chest x-ray revealed left 2nd, 3rd, 4th rib fracture. Head CT non contrast revealed no acute abnormality. MRI revealed no evidence of acute infarction, intracranial hemorrhage, mass effect or hydrocephalus. Questionable signal abnormality in the anterior medulla oblongata is nonspecific. Clinical correlation, follow-up recommended with intravenous contrast. Neurology was consulted. 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 Continue home medications. Consults/Reason for consult Neurology consulted Operations or Procedures MRI BRAIN HEAD WO CONTRAST INDICATION: r/o ischemic stroke or structural disease EXAM DATE: 10/06/2024 12:55 PM COMPARISON: CT HEAD WITHOUT CONTRAST on DOS: 10/05/24 TECHNIQUE: MRI of the brain without intravenous contrast. FINDINGS: Diffusion weighted images of the brain demonstrate no evidence of acute infarction. There is no evidence of acute intracranial hemorrhage, extra-axial collection, mass effect, midline shift, herniation or hydrocephalus. The ventricles, sulci and cisterns appear age appropriate. Questionable abnormal signal in the anterior medulla oblongata bilaterally. There are no signal abnormalities on the susceptibility weighted sequences. The major vascular flow voids are present. The visualized paranasal sinuses and mastoid air cells are clear. The surrounding soft tissues and osseous structures are unremarkable. IMPRESSION: 1. No evidence of acute infarction, intracranial hemorrhage, mass effect or hydrocephalus. Questionable signal abnormality in the anterior medulla oblongata is nonspecific. Clinical correlation and continued follow-up is recommended. Consider follow-up exam with intravenous contrast. --- CHEST RADIOGRAPH Indication: Cardiac evaluation Technique: Single frontal view of the chest was obtained Comparison: None FINDINGS: Lines and Tubes: None Lungs: No focal consolidation. Pleura: No effusion. No pneumothorax. Cardiomediastinal contours: Unremarkable Bones: Age-indeterminate left 2nd, 3rd and 4th rib fractures. IMPRESSION: 1. No acute cardiopulmonary disease. 2. Age-indeterminate left 2nd, 3rd and 4th rib fractures. --- CT head TECHNIQUE: Helical imaging carried out from skull base to vertex without intravenous contrast. This exam was performed according to our departmental dose optimization program. Up-to-date CT equipment and radiation dose reduction techniques are utilized as appropriate. CTDIVol: 64.62 mGy DLP: 1271.79 mGy-cm WID: COMPARISON: None FINDINGS: The ventricles and subarachnoid spaces are normal in size and configuration. There is no midline shift or mass effect. The ladd white matter interfaces are maintained. The basal cisterns are patent. There is no evidence of acute intracranial hemorrhage or extra-axial fluid collection. The mastoid air cells and visualized paranasal sinuses are well-aerated. IMPRESSION: No acute intracranial abnormality. 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 History of lupus DM type 2 CKD Stage stage 3b Dehydration Obesity Discharge Disposition: Home Discharge Instruct/Medications Diet: Consistent carbohydrate, Cardiac 2g Na,low cholest Activity: No Restrictions, As Tolerated Follow Up/Referral: Follow-up with PCP in 1 week Medications: Continue home medications Scheduled Apixaban Base (Eliquis), 5 MG PO BID, (Reported) Atorvastatin Calcium (Lipitor), 40 MG PO HS, (Reported) Carvedilol (Carvedilol), 6.25 MG PO BID, (Reported) Ertugliflozin l-Pyroglutamic A (Steglatro), 5 MG PO DAILY, (Reported) Furosemide (Lasix), 1 TAB PO DAILY, (Reported) Hydroxychloroquine Sulfate (Hydroxychloroquine Sulfat), 200 MG PO BID, (Reported) Mycophenolate Mofetil (Cellcept), 500 MG PO BID, (Reported) Potassium Chloride (Potassium Chloride Cr), 10 MEQ PO DAILY, (Reported) Sacubitril-Valsartan (Entresto 24-26 mg), 1 TAB PO BID, (Reported) Discharge Statement: "Patient was advised to return to the ER or call 911 if any headaches, dizziness, shortness of breath, chest pain, abdominal pain, bleeding, fevers, or worsening of medical condition. Patient was counseled about treatment plan, medications, possible side effects, patientverbalized understanding. All questions were answered to the best of my ability. This discharge took greater then 30 minutes in planning, reviewing documentation, counseling the patient, and discussing with other team members." ASSESSMENT ASSESSMENT Assessment RUTHIE KHALIL RESIDENT Oct 07, 2024 07:04
[2024-10-07 09:08] VITALS: BP 137/93; PULSE 78; RESP 20; TEMP 97.4; O2SAT 94
[2024-10-07] MEDS: PANTOPRAZOLE 40 MG/10 ML VIAL INJ IV SCH (09:14)
[2024-10-07] MEDS: THIAMINE 100mg/ml INJ (200mg/2ml VIAL) IV ONE (09:14)
[2024-10-07] MEDS: CARVEDILOL 3.125 MG TAB PO SCH (09:17)
[2024-10-07] MEDS: SACUBITRIL-VALSARTAN 24mg/26mg TAB PO SCH (09:17)
[2024-10-07] MEDS: FUROSEMIDE 20 MG TAB PO SCH (09:18)
[2024-10-07] MEDS: APIXABAN 5 MG TAB PO SCH (09:18)
[2024-10-07] MEDS: ATORVASTATIN 20 MG TAB PO ONE (10:05)
[2024-10-07] MEDS: MYCOPHENOLATE 500 MG TAB PO SCH (10:06)
[2024-10-07] MEDS: FOLIC ACID 1 MG in D5W 5% 50 ML INJ ONE (10:07)
[2024-10-07 13:00] VITALS: BP 123/91; PULSE 71; RESP 17; TEMP 97.8; O2SAT 97
[2024-10-07 16:35] VITALS: BP 142/99; PULSE 80; RESP 18; TEMP 97.4; O2SAT 97
--- NOTE | 2024-10-07 18:21 | DVHPNRES ---
Progress Note Date Seen: Oct 07, 2024 Resident Creating Document: RUTHIE KHALIL RESIDENT Medical Necessity Reason Pt with a Central, PICC or Fol: No Subjective Review of Systems Tommy Mckeon 39 year-old male, with a past medical history of Lupus, Seizures, DM, Stroke (), DVT, CHF, ED, presented to the ER with a complaint of confusion associated with gaps in memory. He reports his brother brought him here for talking gibberish. He does not recall the incident. As per the note in ER, 'The patient was accompanied by family member who report changes from his normal baseline cognitive status. Per brother, this behavior is irregular, patient looks anxious and confused, unable to recall recent events and repeating same story- Like he is in a loop". The patient denies head trauma, seizure episode, headache, new medication, fever, chills, nausea, changes on vision. His initial labs showed thrombocytopenia, elevated creatinine, ALP. Toxicology screen is positive for cannabinoids. Chest x-ray revealed left 2nd, 3rd, 4th rib fracture, head CT revealed no acute abnormality. An MRI done showed: no evidence of acute infarction, intracranial hemorrhage, mass effect or hydrocephalus. Questionable signal abnormality in the anterior medulla oblongata is nonspecific. Clinical correlation, follow-up recommended with intravenous contrast. Previous hospitalization: For stroke management in [facility] PMHx: Lupus, Seizures, DM, Stroke (), DVT, CHF, ED PSHx: Interventricular septal repair as infant Social history: Lives in [place], visiting parents who live with brother. Quit smoking 6-7 years ago, occasional alcohol use (4 per week) marijuana, last used 2 days ago Home medication: Mycophenolate, hydrochloroquine, furosemide, atorvastatin, Entresto, carvedilol, Eliquis, potassium, Stegletro, tadalafil, Ozempic ROS: Constitutional: Denies weight loss, fever and chills. HEENT: Denies changes in vision and hearing. Respiratory: Denies shortness of breath and cough Cardiovascular: Denies chest discomfort or palpitations GI: Denies abdominal pain, nausea, vomiting and diarrhea. : Denies dysuria and urinary frequency. Musculoskeletal: Denies myalgias and joint pain Skin: Denies rash and pruritus. Neurological: Confusion, amnesia His examined today. His vitals are stable. Continues to complain of confusion and amnesia. Ordered echo and EEG. Neurology consulted. We will continue monitoring and managing. Objective vital signs Vital Sign Date Time Temp Pulse Resp B/P (MAP) Pulse Ox O2 Delivery O2 Flow Rate FiO2 10/07/24 16:35 97.4 80 18 142/99 (113) 97 97.4 10/07/24 08:00 Room Air* 0 21 Total Intake and Output 10/06/24 10/06/24 10/07/24 15:00 23:00 07:00 Intake Total 350 ml Balance 350 ml medications Current Medications Medications Dose Ordered Sig/Daniel Route Start Time Stop Time Status Last Admin Dose Admin Pantoprazole Sodium 40 mg DAILY IV 10/07/24 10:00 10/07/24 09:14 40 MG Acetaminophen 650 mg Q6HP PRN PO 10/06/24 14:15 Amlodipine Besylate 5 mg DAILY PO 10/07/24 10:00 10/07/24 09:18 5 MG Diagnostic Test (Pha) 1 strip ACHS 10/06/24 22:00 10/07/24 17:05 1 STRIP Insulin Human Regular ACHS SC 10/06/24 22:00 Dextrose 50 ml UD PRN IV 10/06/24 19:00 Apixaban 5 mg BID PO 10/07/24 10:00 10/07/24 09:18 5 MG Atorvastatin Calcium 40 mg HS PO 10/07/24 22:00 Thiamine HCl 100 mg DAILY IV 10/08/24 10:00 Folic Acid 1 mg/ Dextrose 50.2 ml @ 200.8 mls/ hr DAILY INJ 10/08/24 10:00 Carvedilol 6.25 mg Q12HR PO 10/07/24 10:00 10/07/24 09:17 6.25 MG Sacubitril/ Valsartan 1 tab BID PO 10/07/24 10:00 10/07/24 09:17 1 TAB Furosemide 20 mg DAILY PO 10/07/24 10:00 10/07/24 09:18 20 MG Mycophenolate Mofetil 500 mg BID PO 10/07/24 10:00 10/07/24 10:06 500 MG Hydroxychloroquine Sulfate 200 mg BID PO 10/07/24 10:00 10/07/24 09:17 200 MG Examination General: Patient alert and oriented in person, place and time. Patient following commands. HEENT: Normocephalic, atraumatic, moist mucous membranes Respiratory/pulmonary: Clear lungs bilaterally, no associated crackles or wheezes. Cardiovascular: Normal heart sounds S1 and S2 with no associated murmurs Abdomen: Abdomen nondistended, there is no pain to palpation in any of the abdominal quadrants, no palpable masses. Extremities: There is no peripheral edema present at the lower extremities. Skin: No rashes or pruritus, there is no sacral edema present at this time. Neurological: Intact cranial nerves with no focal neurologic deficits laboratory and microbiology Laboratory Tests 10/07/24 05:23 Test 10/07/24 05:23 Range/Units Serum Glucose 84 74-106 mg/dL Problem List/Assessment/Plan Problem List/Assessment/Plan Acute toxic encephalopathy, likely due to alcohol use disorder Acute onset amnesia, due to below Ischemic stroke, ruled out Hemorrhagic stroke, ruled out Seizure disorder, possible * Head CT non contrast revealed no acute abnormality * MRI revealed no evidence of acute infarction, intracranial hemorrhage, mass effect or hydrocephalus. Questionable signal abnormality in the anterior medulla oblongata is nonspecific. Clinical correlation, follow-up recommended with intravenous contrast. 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 We will hold off due to thrombocytopenia GI PROPHYLAXIS: Protonix CODE STATUS: Goals of care discussed with patient at bedside for more than 25 minutes. Full code DISPOSITION: Outflow Patient's status and plan discussed with the patient. Case discussed with Dr. Oleary. Plan discussed with: Patient My Orders My Orders Orders - RUTHIE KHALIL RESIDENT Procedure Category Date Status Time Hepatitis B Surface LAB 10/07/24 In Process Antigen 01:00 Hepatitis C Antibody LAB 10/07/24 In Process 01:00 Date of Service: Oct 07, 2024 Billing Provider: JENNYFER OLEARY MD Common Visit Codes: [id number] INP/OBS CARE(HIGH) RUTHIE KHALIL RESIDENT Oct 07, 2024 18:21 JENNYFER OLEARY MD Oct 11, 2024 08:41
[2024-10-07 20:00] VITALS: PULSE 67; RESP 16; O2SAT 97
[2024-10-07 21:00] VITALS: BP 130/92; PULSE 67; RESP 12; TEMP 97.5; O2SAT 97
[2024-10-07] MEDS: ATORVASTATIN 20 MG TAB PO SCH (23:35)
[2024-10-08 01:00] VITALS: BP 97/60; PULSE 72; RESP 16; TEMP 97.5; O2SAT 95
[2024-10-08 05:00] VITALS: BP 120/64; PULSE 74; RESP 12; TEMP 97.8; O2SAT 94
--- NOTE | 2024-10-08 06:25 | DVHDSRES ---
Discharge Summary Date of Admission Resident Creating Document: RUTHIE KHALIL RESIDENT Oct 06, 2024 at 01:32 Date of Discharge: Oct 08, 2024 Admitting Diagnosis Confusion with gaps in memory Wounds: No large wounds Labs/Diagnostic Data: Laboratory Results Test 10/07/24 23:39 10/07/24 05:23 10/06/24 13:47 10/05/24 23:30 POC Glucose 99 mg/dl (70-106) White Blood Count 6.3 10^3/uL (4.4-10.8) Red Blood Count 5.27 10^6/uL (4.5-5.90) Hemoglobin 14.8 g/dL (13.5-17.5) Hematocrit 43.3 % (41.0-53.0) Mean Corpuscular Volume 82.3 fL (80.0-100.0) Mean Corpuscular Hemoglobin 28.0 pg (28.0-32.0) Mean Corpuscular Hemoglobin Concent 34.1 g/dL (32.0-36.0) Red Cell Distribution Width 13.9 % (11.8-14.3) Platelet Count 81 10^3/uL (140-450) Mean Platelet Volume 8.3 fL (6.9-10.8) Neutrophils (%) (Auto) 61.7 % (37.0-80.0) Lymphocytes (%) (Auto) 20.3 % (10.0-50.0) Monocytes (%) (Auto) 9.4 % (0.0-12.0) Eosinophils (%) (Auto) 7.4 % (0.0-7.0) Basophils (%) (Auto) 1.2 % (0.0-2.0) Neutrophils # (Auto) 3.9 10 ^3/uL (1.6-8.6) Lymphocytes # (Auto) 1.3 10 ^3/uL (0.4-5.4) Monocytes # (Auto) 0.6 10 ^3/uL (0-1.3) Eosinophils # (Auto) 0.5 10 ^3/uL (0-0.8) Basophils # (Auto) 0.1 10 ^3/uL (0-0.2) Nucleated Red Blood Cells 0.1 % Sodium Level 141 mmol/L (136-145) Potassium Level 3.7 mmol/L (3.5-5.1) Chloride Level 110 mmol/L (98-107) Carbon Dioxide Level 24 mmol/L (20-31) Anion Gap 7 (5-15) Blood Urea Nitrogen 17 mg/dL (9-23) Creatinine 1.38 mg/dL (0.700-1.30) Glomerular Filtration Rate Calc 66 mL/min (>90) BUN/Creatinine Ratio 12.3 (10.0-20.0) Serum Glucose 84 mg/dL (74-106) Calcium Level 9.5 mg/dL (8.7-10.4) Erythrocyte Sedimentation Rate 10 mm/hr (0-20) Prothrombin Time 11.9 sec (9.3-11.8) Prothrombin Time INR 1.14 (0.9-1.15) Hemoglobin A1c 6.2 % A1C (<5.7) C-Reactive Protein High Sensitivity 0.89 mg/dL (<1.0) B-Type Natriuretic Peptide 56.43 pg/mL (0-100) Urine Color Light-yellow (Yellow) Urine Clarity Clear (Clear) Urine pH 5.0 (5.0-9.0) Urine Specific [place] 1.020 (1.001-1.035) Urine Protein Trace (Negative) Urine Ketones Negative (Negative) Urine Blood Negative /uL (Negative) Urine Nitrite Negative (Negative) Urine Bilirubin Negative (Negative) Urine Urobilinogen Normal mg/dL (Negative) Urine Leukocyte Esterase Negative /uL (Negative) Urine RBC None seen /hpf (0 - 3) Urine Microscopic WBC < 1 /HPF (0-3) Urine Squamous Epithelial Cells None seen /hpf (<5) Urine Uric Acid Crystals Few /hpf (None Seen) Urine Bacteria None seen /hpf (None Seen) Urine Mucus Few (None Seen) Urine Glucose 4+ mg/dL (Normal) Urine Opiates Screen Neg (NEGATIVE) Urine Fentanyl Screen Neg (NEGATIVE) Urine Barbiturates Screen Neg (NEGATIVE) Urine Phencyclidine Screen Neg (NEGATIVE) Urine Amphetamines Screen Neg (NEGATIVE) Urine Benzodiazepines Screen Neg (NEGATIVE) Urine Cocaine Screen Neg (NEGATIVE) Urine Cannabinoids Screen Pos (NEGATIVE) Test 10/05/24 21:00 Platelet Estimate Decreased Total Bilirubin 0.8 mg/dL (0.2-1.0) Aspartate Amino Transferase (AST) 31 U/L (13-40) Alanine Aminotransferase (ALT) 34 U/L (7-40) Alkaline Phosphatase 149 U/L (46-116) Ammonia 14 umol/L (11-32) Total Protein 7.7 g/dL (5.7-8.2) Albumin 4.7 g/dL (3.2-4.8) Plasma/Serum Blood Alcohol 4.1 mg/dL (<10) Other Laboratory Tests 10/07/24 05:23 Brief Hx & Hospital Course: Tommy Mckeon is a 39 year-old male, with a past medical history of Lupus, Seizures, DM, Stroke (), DVT, CHF, ED, presented to the ER with a complaint of confusion associated with gaps in memory. He reported he could recall drinking beer with his brother. His brother brought him to the ER for talking gibberish. He was confused to do inability to recall the incident, and eating dinner with the family. As per the note in ER, 'The patient was accompanied by family member who report changes from his normal baseline cognitive status. Per brother, this behavior is irregular, patient looks anxious and confused, unable to recall recent events and repeating same story- Like he is in a loop". He denied head trauma, seizure episode, headache, new medication, fever, chills, nausea, changes on vision, meningeal symptoms. Physical exam on the day of discharge: General: Patient alert and oriented in person, place and time. Patient following commands. HEENT: Normocephalic, atraumatic, moist mucous membranes Respiratory/pulmonary: Clear lungs bilaterally, no associated crackles or wheezes. Cardiovascular: Normal heart sounds S1 and S2 with no associated murmurs. Abdomen: Abdomen nondistended, there is no pain to palpation in any of the abdominal quadrants, no palpable masses. Extremities: There is no peripheral edema present at the lower extremities. Skin: No rashes or pruritus, there is no sacral edema present at this time. Neurological: Intact cranial nerves with no focal neurologic deficits. No motor or sensory deficit. Normal power in all four limbs. Hospital course: His initial labs showed thrombocytopenia, elevated creatinine, ALP. Toxicology screen is positive for cannabinoids. Chest x-ray revealed left 2nd, 3rd, 4th rib fracture. Head CT non contrast revealed no acute abnormality. MRI revealed no evidence of acute infarction, intracranial hemorrhage, mass effect or hydrocephalus. Questionable signal abnormality in the anterior medulla oblongata is nonspecific, follow-up recommended with intravenous contrast. He was monitored, no new episode of confusion. His vitals are stable, platelet counts are stable. Neurology was consulted and will follow up outpatient. 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 Continue home medications. Follow up for outpatient EEG after outpatient neurology re-evaluation. MRI revealed questionable signal abnormality in the anterior medulla oblongata is nonspecific, follow-up recommended with intravenous contrast. Counseled on marijuana use cessation for 16 minutes Goals of care discussed with the patient for 20 minutes; full code Discussed with Dr. Cooper Consults/Reason for consult Neurology consulted, recommended supportive treatment, Eliquis 5 mg b.i.d., thiamine, folic acid supplementation. F/u with neurology Outpatient. Operations or Procedures MRI BRAIN HEAD WO CONTRAST INDICATION: r/o ischemic stroke or structural disease EXAM DATE: 10/06/2024 12:55 PM COMPARISON: CT HEAD WITHOUT CONTRAST on DOS: 10/05/24 TECHNIQUE: MRI of the brain without intravenous contrast. FINDINGS: Diffusion weighted images of the brain demonstrate no evidence of acute infarction. There is no evidence of acute intracranial hemorrhage, extra-axial collection, mass effect, midline shift, herniation or hydrocephalus. The ventricles, sulci and cisterns appear age appropriate. Questionable abnormal signal in the anterior medulla oblongata bilaterally. There are no signal abnormalities on the susceptibility weighted sequences. The major vascular flow voids are present. The visualized paranasal sinuses and mastoid air cells are clear. The surrounding soft tissues and osseous structures are unremarkable. IMPRESSION: 1. No evidence of acute infarction, intracranial hemorrhage, mass effect or hydrocephalus. Questionable signal abnormality in the anterior medulla oblongata is nonspecific. Clinical correlation and continued follow-up is recommended. Consider follow-up exam with intravenous contrast. --- CHEST RADIOGRAPH Indication: Cardiac evaluation Technique: Single frontal view of the chest was obtained Comparison: None FINDINGS: Lines and Tubes: None Lungs: No focal consolidation. Pleura: No effusion. No pneumothorax. Cardiomediastinal contours: Unremarkable Bones: Age-indeterminate left 2nd, 3rd and 4th rib fractures. IMPRESSION: 1. No acute cardiopulmonary disease. 2. Age-indeterminate left 2nd, 3rd and 4th rib fractures. --- CT head TECHNIQUE: Helical imaging carried out from skull base to vertex without intravenous contrast. This exam was performed according to our departmental dose optimization program. Up-to-date CT equipment and radiation dose reduction techniques are utilized as appropriate. CTDIVol: 64.62 mGy DLP: 1271.79 mGy-cm WID: COMPARISON: None FINDINGS: The ventricles and subarachnoid spaces are normal in size and configuration. There is no midline shift or mass effect. The ladd white matter interfaces are maintained. The basal cisterns are patent. There is no evidence of acute intracranial hemorrhage or extra-axial fluid collection. The mastoid air cells and visualized paranasal sinuses are well-aerated. IMPRESSION: No acute intracranial abnormality. 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 Follow up EEG and consult with neurology as outpatient. MRI revealed questionable signal abnormality in the anterior medulla oblongata is nonspecific, follow-up recommended with intravenous contrast. Continue home medications. Scheduled Apixaban Base (Eliquis), 5 MG PO BID, (Reported) Atorvastatin Calcium (Lipitor), 40 MG PO HS, (Reported) Carvedilol (Carvedilol), 6.25 MG PO BID, (Reported) Ertugliflozin l-Pyroglutamic A (Steglatro), 5 MG PO DAILY, (Reported) Furosemide (Lasix), 1 TAB PO DAILY, (Reported) Hydroxychloroquine Sulfate (Hydroxychloroquine Sulfat), 200 MG PO BID, (Reported) Mycophenolate Mofetil (Cellcept), 500 MG PO BID, (Reported) Potassium Chloride (Potassium Chloride Cr), 10 MEQ PO DAILY, (Reported) Sacubitril-Valsartan (Entresto 24-26 mg), 1 TAB PO BID, (Reported) Discharge Statement: "Patient was advised to return to the ER or call 911 if any headaches, dizziness, shortness of breath, chest pain, abdominal pain, bleeding, fevers, or worsening of medical condition. Patient was counseled about treatment plan, medications, possible side effects, patientverbalized understanding. All questions were answered to the best of my ability. This discharge took greater then 30 minutes in planning, reviewing documentation, counseling the patient, and discussing with other team members." ASSESSMENT ASSESSMENT Assessment Acute toxic encephalopathy, likely due to alcohol use disorderAcute onset amnesia, due to belowIschemic stroke, ruled outHemorrhagic stroke, ruled outSeizure disorder, possibleHx of CHFHypertensionPossible Neurophychiatric lupusHistory of lupusDM type 2 CKD Stage stage 3bDehydrationObesity Addendum Addendum Addendum I was physically present for the hall portions of the service provided to patient by THE RESIDENT. I have reviewed the documentation, discussed the case with resident and agree with the resident's documentation except as noted. Also the patient's clinical case was discussed with the patient's nurse. This medical document was created using an electronic medical record system with computerized dictation system. Although this document has been carefully reviewed, there might still be some phonetic and typographical errors. These areas are purely typographical due to imperfections of the software programs, and do not reflect any compromise in the patient's medical care. Late signature. Date of Service: Oct 08, 2024 Billing Provider: YAN COOPER MD Common Visit Codes: [id number] INP/OBS CARE(HIGH) Secondary Visit Codes: [id number] CHNG SMOKING >10MIN (Counseled on marijuana use cessation for 16 minutes), [id number] CARE PLAN 30 MINUTES (20 minutes) RUTHIE KHALIL RESIDENT Oct 08, 2024 06:25 YAN COOPER MD Oct 10, 2024 05:54
[2024-10-08 08:00] VITALS: PULSE 63; RESP 16; O2SAT 97
[2024-10-08 08:30] VITALS: BP 134/85; PULSE 65; RESP 16; TEMP 98.1; O2SAT 97
[2024-10-08] MEDS: FOLIC ACID 1 MG in D5W 5% 50 ML INJ SCH (10:00)
[2024-10-08 10:38] LABS: Hematocrit 47.9 % (41.0-53.0); Hemoglobin 16.3 g/dL (13.5-17.5); Mean Corpuscular Hemoglobin 27.8 pg (28.0-32.0); Mean Corpuscular Volume 81.7 fL (80.0-100.0); Nucleated Red Blood Cells % 0.1 %
[2024-10-08] MEDS: THIAMINE 100mg/ml INJ (200mg/2ml VIAL) IV SCH (10:41)
[2024-10-08 10:47] LABS: Chloride 106 mmol/L (98-107)
[2024-10-08 10:48] LABS: Potassium 3.9 mmol/L (3.5-5.1); Sodium 139 mmol/L (136-145)
[2024-10-08 10:49] LABS: Calcium 9.4 mg/dL (8.7-10.4)
[2024-10-08 10:54] LABS: BUN/Creatinine Ratio 11.7 (10.0-20.0); Blood Urea Nitrogen 16 mg/dL (9-23)
[2024-10-08 10:56] LABS: Hepatitis B Surface Antigen Negative (Negative); Hepatitis C Antibody Negative (Negative)
[2024-10-08 10:57] LABS: Glucose 133 mg/dL (74-106)
[2024-10-08 11:31] LABS: Anion Gap 8 (5-15); Carbon Dioxide 25 mmol/L (20-31)
[2024-10-08 12:30] VITALS: BP 139/97; PULSE 66; RESP 16; TEMP 98.6; O2SAT 97
[2024-10-08 16:30] VITALS: BP 130/81; PULSE 69; RESP 18; TEMP 98.3; O2SAT 97
--- NOTE | 2024-10-09 14:18 | DVHSR ---
APPROVED REPORT EXAM: LIMITED Two-dimensional and M-mode echocardiogram with Doppler and color Doppler. Blood Pressure: 128/85 mmHg INDICATION structural heart diseaseand LVEF RISK FACTORS Obesity: Height: 6'11, Weight: 253 DIMENSIONS LVDd (3.8-5.7cm)LA (2D)2.9 (1.9-4.0cm)Aortic Root (2.0-3.7cm) EF (%) 55.0 (55-70%)Rt. Atrium3.4 (1.9-4.0cm)Asc. Aorta cm Mitral Valve MitralMitral Stenosis E wave0.74m/sMV Mean GR.mmHg A wave0.68m/sMV Peak GR.102mmHg E/A ratio1.12D MVAcm2 DECEL [id number] 1/2 Timems Aortic Valve Aortic ValveAortic Stenosis V10.96m/Tyrell Mean GR.4mmHg V21.27m/Tyrell Peak GR.6mmHg LVOT Diameter2.0 (1.8-2.4cm)Doppler AVA2.37cm2 Other Information Quality : Technically LimitedRhythm : Technically limited study due to body habitus. Conclusion NORMAL LV EF AND IS 60% GROSSLY NORMAL VALVES NORMAL RV FUNCTION NO EFFUSION
--- NOTE | 2024-10-12 00:16 | DVHEEG2 ---
Neurology EEG Procedural Note Procedural Note EXAM DATE: 10/08/2024 REFERRING DOCTOR: Dr. Hicks TECHNIQUE: Eighteen channels of EEG, 2 channels of EOG, and 1 channel of EKG were recorded using the International 10/20 system. CLINICAL DATA: The patient was referred for an EEG evaluation for the evidence of seizure disorder. MEDICATIONS: See the chart BACKGROUND ACTIVITY: While the patient was awake, the background activity consisted of well regulated 9-10 Hz rhythmic waveforms, symmetrically distributed over both posterior quadrants and was reactive to eye opening. ACTIVATION: Hyperventilation: Not done Photic Stimulation: Not done Sleep: Not seen IMPRESSION: This is a normal EEG. No focal, lateralized, or epileptiform features are noted. If clinically indicated to rule out a seizure disorder, recommend repeat EEG with sleep deprivation. The EKG channel showed a regular heart rate of 66 per [place] [address] ARNOL HICKS MD Oct 12, 2024 00:16
== END 2024-10-08 17:48 | disposition home or self-care (01) | DRG 52 ==
LOC: ER 20:02 → OVERFLOW 10-06 01:32 → EAST 10-06 18:53
PROVIDERS: ADMIT Internal Medicine; ATTEND Nurse Practitioner Family
DX: G92.8 Other toxic encephalopathy (principal); I13.0 Hypertensive heart and chronic kidney disease with heart failure and stage 1 through stage 4 chronic kidney disease, or unspecified chronic kidney disease; I50.9 Heart failure, unspecified; E11.22 Type 2 diabetes mellitus with diabetic chronic kidney disease; R41.3 Other amnesia; N18.32 Chronic kidney disease, stage 3b; E66.9 Obesity, unspecified; Z68.35 Body mass index [BMI] 35.0-35.9, adult; F10.20 Alcohol dependence, uncomplicated; G45.4 Transient global amnesia; F17.200 Nicotine dependence, unspecified, uncomplicated; E86.0 Dehydration; Z86.73 Personal history of transient ischemic attack (TIA), and cerebral infarction without residual deficits; Z82.3 Family history of stroke; Z79.01 Long term (current) use of anticoagulants; Z86.718 Personal history of other venous thrombosis and embolism
CPT/HCPCS: 36415; 70450; 70551; 71045; 80048; 80053; 80307; 80320; 81001; 82140; 82962; 83036; 83880; 85025; 85610; 85652; 86141; 86803; 87340; 93306; 95819; 97110; 97116; 97163; 97530; G0378; J2470; J7060; J7517